=== PATIENT | female | born 1990 | race Two or more races ===

== ENCOUNTER 2019-10-30 08:37 | Emergency (ER) | payer MEDICAID, OTHER ==
[~2019-10-30] VITALS: Ht 160 cm; Wt 96.8 kg
[~2019-10-30 08:37] MED LIST: CIPR-173; ESCI10TA; NAPR-223; PREN-129 OR
[2019-10-30 08:40] VITALS: BP 111/67
== END 2019-10-30 10:48 | disposition home or self-care (01) ==
LOC: ER 08:40
DX: M25.551 Pain in right hip (principal); Z79.899 Other long term (current) drug therapy
CPT/HCPCS: 73502